=== PATIENT | male | born 1955 | race Two or more races ===

== ENCOUNTER 2021-12-08 06:59 | Day surgery (SDC) | payer OTHER ==
[2021-12-08] MEDS ORDERED: Lactated Ringers 1,000 ML IV SCH (07:00)
[2021-12-08] MEDS ORDERED: Propofol 200 MG/20 ML SDV ONE (07:53)
[2021-12-08] MEDS ORDERED: Midazolam 1 MG/ML 2 ML SDV ONE (07:53)
[2021-12-08] MEDS ORDERED: fentaNYL 100 MCG/2 ML SDV ONE (07:53)
[2021-12-08] MEDS ORDERED: Simethicone Drops 40 MG/0.6 ML 30 ML Bottle ONE (08:14)
== END 2021-12-08 10:05 | disposition home or self-care (01) ==
LOC: VM.SDS 06:59
PROVIDERS: ATTEND Family Medicine
DX: Z12.11 Encounter for screening for malignant neoplasm of colon (principal); D12.3 Benign neoplasm of transverse colon; K57.30 Diverticulosis of large intestine without perforation or abscess without bleeding; I10 Essential (primary) hypertension; E11.9 Type 2 diabetes mellitus without complications; E78.00 Pure hypercholesterolemia, unspecified; Z79.82 Long term (current) use of aspirin; Z79.899 Other long term (current) drug therapy; Z87.891 Personal history of nicotine dependence
CPT/HCPCS: 00811; 45380; 45385; A9270; J2250; J2704; J3010; J7120

== ENCOUNTER 2023-06-06 20:05 | Emergency (ER) | payer MEDICARE, BC ==
[2023-06-06] MEDS: Take Home: Codeine/Promethazine 10-6.25 MG/5 ML Syrup 5 ML, 2 Cup Pack PO ONE (20:43)
[2023-06-06] MEDS ORDERED: Take Home: Codeine/Promethazine 10-6.25 MG/5 ML Syrup 5 ML, 2 Cup Pack ONE (20:47)
== END 2023-06-06 20:55 | disposition home or self-care (01) ==
LOC: VM.ED 20:05
DX: J20.9 Acute bronchitis, unspecified (principal); J21.9 Acute bronchiolitis, unspecified; I10 Essential (primary) hypertension; E78.00 Pure hypercholesterolemia, unspecified; E11.9 Type 2 diabetes mellitus without complications; Z79.82 Long term (current) use of aspirin; Z79.899 Other long term (current) drug therapy
CPT/HCPCS: 99283; A9270-GY